=== PATIENT | male | born 1990 ===

== ENCOUNTER → 2016-11-07 | Day surgery (SDC) | payer BC ==
[~2016-11-07] VITALS: Ht 165.1 cm; Wt 59.0 kg
[2016-11-07] VITALS (11 sets, daily range): BP systolic 110–145; BP diastolic 53–82
[~2016-11-07] MED LIST: ACETIC ACID 0.25% IRRIG ONE; Acetic Acid 3% Solution 15ml TOPIC ONE; Alfentanil 2ml Inj ONE; Atropine Inj 1mg/10ml Syr IV PRN; BIOTIN1 MG PO; Bupivacaine 0.25% Inj 30ml INJ ONE; Dexamethasone 4mg/ml vial ONE; DiphenhydrAMINE 50mg/ml Inj IVP PRN; EPINEPHrine 1mg/1ml Amp ONE; GENVOYA TABLET1 EACH PO; Hydromorphone 0.5mg/0.5ml inj IVP PRN; Ketorolac 30mg Inj IV PRN; Ketorolac 60mg Inj IV PRN; LORazepam Inj 2mg/ml 1ml IV PRN; LR 1000ml 1,000 ML IVLG SCH; LR 1000ml ONE; Labetalol 5mg/ml 20ml vial IV PRN; Lidocaine 1% MPF 10mg/ml 5ml ONE; MULTIVITAMINS1 EAC2 ORAL; Meperidine 25mg/ml Inj IV PRN; Metoclopramide 10mg/2ml Inj IVP PRN; Midazolam 2mg/2ml Inj IVP PRN; NS Irrig 1000ml ONE; Norco 5mg/325mg tab ORAL PRN; Norco 7.5mg/325mg tab ORAL PRN; Oxycodone/Acetaminophen 5-325 ORAL PRN; PROPECIA1 MG PO; Propofol 10mg/ml 100ml btl IV ONE; Ropivacaine 5mg/ml Vial 20ml INJ ONE; Sterile Water Irrig 1000ml IRRIG ONE; cefOXitin 1gm Inj ONE; fentaNYL 100 mcg/2 mL IV PRN
--- NOTE | 2016-11-07 11:39 | Anethesia Preoperative Eval ---
Anesthesia Pre-op PMH/ROS General Date of Evaluation: Nov 07, 2016 Time of Evaluation: 11:38 Anesthesiologist: Jose ASA Score: ASA 3 Mallampati Score Class I : Soft palate, uvula, fauces, pillars visible Class II: Soft palate, uvula, fauces visible Class III: Soft palate, base of uvula visible Class IV: Only hard plate visible Mallampati Classification: Class I Surgeon: Anca Diagnosis: Anal Condylomata Surgical Procedure: Fulgaration Anal Condylomata Anesthesia History: none Family History: no anesthesia problems Allergies: Coded Allergies: No Known Allergies (Unverified , 11/06/16) Medications: see eMAR Past Medical History Hematology/Immune: Reports: other - HIV Anesthesia Pre-op Phys. Exam Physician Exam Last Vital Signs Date Time Temp Pulse Resp B/P Pulse Ox O2 Delivery O2 Flow Rate FiO2 11/07/16 10:51 98.1 80 17 129/82 100 Room Air Constitutional: NAD Neurologic: CN 2-12 intact Cardiovascular: RRR Respiratory: CTA Gastrointestinal: S/NT/ND Airway Exam Mallampati Score: Class I MO: full ROM: full Teeth: intact Anesthesia Pre-op A/P Risk Assessment & Plan Assessment: ASA 3 Plan: GA Status Change Before Surgery: No Pre-Antibiotics Dru Gram Cefoxitan IV Given Within 1 Hr of Incision: Yes Time Given: 11:49 Irvin Garcia MD Nov 07, 2016 11:39
--- NOTE | 2016-11-07 11:42 | Pre-Procedure Note/Attestation ---
Pre-Procedure Note/Attestation Complete Prior to Procedure Planned Procedure: not applicable Procedure Narrative: Excision and fulguration of anal condyloma Indications for Procedure Pre-Operative Diagnosis: anal condyloma Attestation I attest that I discussed the nature of the procedure; its benefits; risks and complications; and alternatives (and the risks and benefits of such alternatives ), prior to the procedure, with the patient (or the patient's legal construction sales representative). I attest that, if there was a reasonable possibility of needing a blood transfusion, the patient (or the patient's legal construction sales representative) was given the [facility] standardized written summary, pursuant to the [place] Blood Safety Act ([place] Health and Safety Code # 1645, as amended). I attest that I re-evaluated the patient just prior to the surgery and that there has been no change in the patient's H&P, except as documented below: SALINA GOODE Nov 07, 2016 11:42
--- NOTE | 2016-11-07 12:12 | 48 Hour Post Anesthesia Eval ---
Post Anesthesia Evaluation Procedure: Fulgaration Anal Condylomata Date of Evaluation: Nov 07, 2016 Time of Evaluation: 14:41 Blood Pressure Systolic: 132 0: 81 Pulse Rate: 79 Respiratory Rate: 18 Temperature (Fahrenheit): 98.6 O2 Sat by Pulse Oximetry: 100 Airway: patent Nausea: No Vomiting: No Pain Intensity: 1 Hydration Status: adequate Cardiopulmonary Status: Stable Mental Status/LOC: patient returned to baseline Follow-up Care/Observations: 0 Post-Anesthesia Complications: 0 Follow-up care needed: ready to discharge Irvin Garcia MD Nov 07, 2016 12:12
--- NOTE | 2016-11-07 12:12 | Immediate Post-Op Evaluation ---
Immediate Post-Op Evalulation Immediate Post-Op Evalulation Procedure: Fulgaration Anal Condylomata Date of Evaluation: Nov 07, 2016 Time of Evaluation: 12:39 IV Fluids: 600 LR Blood Products: 0 Estimated Blood Loss: 10 Urinary Output: 0 Blood Pressure Systolic: 144 Blood Pressure Diastolic: 65 Pulse Rate: 101 Respiratory Rate: 16 O2 Sat by Pulse Oximetry: 100 Temperature (Fahrenheit): 98.6 Pain Score (1-10): 1 Nausea: No Vomiting: No Complications 0 Patient Status: awake, reacts, patent, none Hydration Status: adequate Dru Gram Cefoxitin IV Given Within 1 Hr of Incision: Yes Time Given: 11:49 Irvin Garcia MD Nov 07, 2016 12:12
--- NOTE | 2016-11-07 12:22 | Brief Operative Note ---
Immediate Post Operative Note Operative Note Pre-op Diagnosis: anal condyloma Procedure: Excision and fulguration of anal condyloma Post-op Diagnosis: same Post-op Diagnosis: same as pre-op Findings: consistent w/pre-op dx studies Surgeon: Mehreen Goode MD Anesthesiologist: Irvin Garcia MD Anesthesia: moderate sedation Specimen: yes Complications: none Condition: stable Estimated Blood Loss: minimal Drains: none Implant(s) used?: No MEHREEN GOODE Nov 07, 2016 12:22
--- NOTE | 2016-11-07 12:23 | Discharge Instructions ---
Discharge Instructions Discharge Instructions Diet: regular Activity: as tolerated Follow Up Orders Follow up in 2-3 weeks. May shower. Remove dressing tonight. For Surgical Patients May shower: Yes For Congestive Heart Failure Reminder Report to your physician any weight gain of 5 pounds or more in one week. SALINA GOODE Nov 07, 2016 12:23
--- NOTE | 2016-11-07 20:58 | Operative Note - Dictated ---
DATE OF OPERATION: 11/07/2016 PREOPERATIVE DIAGNOSIS: Anal condyloma. POSTOPERATIVE DIAGNOSIS: Anal condyloma. PROCEDURE: Excision and fulguration of anal condyloma. SURGEON: Mehreen March M.D. ANESTHESIOLOGIST: Irvin Garcia M.D. ANESTHESIA: Propofol sedation with local anesthetic. INDICATION FOR PROCEDURE: The patient is a 26-year-old male who was sent to my office by his physicians, Dr. Marky Spain and Dr. Romeo Andujar for colorectal surgical evaluation of anal condyloma. The patient was noted to have extensive internal condyloma and external condyloma on physical exam. It was decided to proceed with excision and fulguration under sedation. The patient was diagnosed with HIV in May 2015. DESCRIPTION OF PROCEDURE: Upon consent of the patient, the patient was brought to the procedure room and placed in a prone jose luis-knife position on the operating table. With adequate sedation established with propofol drip, the patient's buttocks were prepped and draped in usual surgical fashion. A 40 mL of 0.5% ropivacaine with epinephrine mixed with 6 mg of dexamethasone was used as a perianal and pudendal block. A Hill-Hagan retractor was placed in the anal canal. There were internal anal condyloma and external anal condyloma. These were excised and sent off the field as specimen. The anal canal was then stained with 3% acetic acid and all areas of staining were electro-fulgurated as well. The patient's internal hemorrhoids were noted to be moderate in size. The anal canal was irrigated. Hemostasis was confirmed. Sterile dry dressing was used as an outer dressing. Sponge and instrument counts were correct at the end of the case. The patient was awakened from anesthesia and brought to the postanesthesia recovery room in stable condition. ESTIMATED BLOOD LOSS: Less than 5 mL. DRAINS: None. SPECIMEN: Internal condyloma, external anal condyloma. COMPLICATIONS: None. Mehreen March M.D. DR: Paco JOB#: [id number] CC: Mehreen March M.D.; Fax#: [phone] Khan M.D.; Fax#: [phone] Chandler
== END | disposition home or self-care (01) ==
LOC: SUR 10:22
DX: A63.0 Anogenital (venereal) warts (principal); K64.8 Other hemorrhoids
CPT/HCPCS: 46924; J0171; J0694; J1100; J2250; J2704; J2795; J3490; J7120; 94003; 94150